=== PATIENT | male | born 2000 | race Caucasian/White ===

== ENCOUNTER 2021-02-08 22:15 | Emergency (ER) | payer MEDICAID, OTHER ==
[2021-02-08] MEDS ORDERED: Ticagrelor 90 MG Tab PO ONE (22:47)
--- NOTE | 2021-02-08 22:47 | EDM.PDOC ---
ED HPI GENERAL MEDICAL PROBLEM - General Chief Complaint: Respiratory Problem Stated Complaint: fever, chills, weak, aches, cough Time Seen by Provider: 02/08/21 22:45 Source of Information: Reports: Patient, Old Records ([facility] EMR. No paper hospital chart available.), Significant Other (Fianc) History Limitations: Reports: No Limitations - History of Present Illness INITIAL COMMENTS - FREE TEXT/NARRATIVE: Patient was brought to the emergency room via private automobile by his fiance for evaluation of multiple symptoms, including a 5-6-day history of generalized arthralgias, fevers, sore throat, pleurisy, nonproductive cough, intermittent nausea, and one episode of emesis prior to arrival with additional episode of emesis in the emergency room at time of his blood draw. He did have a lost of taste about 5 days ago, however this has since resolved. No known exposure to infection, including COVID-19, strep, influenza, etc. He did not receive an influenza or Covid immunization to this point. He complains of an 89/10 headache, 78/10 arthralgias, and 5/10 pleurisy and sore throat. No recent history of abdominal pain, heartburn, nausea, diarrhea, melena, gross hematochezia, or any food intolerance, including fatty foods, etc.. The patient also denies any recent wheezing, etc., although some nonspecific dyspnea with temperature of 103 degrees shortly prior to arrival. He denies any gross hematuria, colic, or other UTI symptoms. Onset: Gradual Onset Date: 02/03/21 Duration: Constant, Getting Worse Location: Reports: Head, Chest (Pleurisy), Generalized (Arthralgias). Denies: Face, Neck, Abdomen, Back, Pelvis, Radiates to Quality: Reports: Ache Severity: Moderate Improves with: Reports: None Worsens with: Reports: None Context: Reports: Other (As above). Denies: Sick Contact, Trauma Associated Symptoms: Reports: Chest Pain (Pleurisy), Cough, Fever/Chills, Headaches, Nausea/Vomiting, Shortness of Breath, Weakness (Mild generalized). Denies: Confusion, cough w sputum, Diaphoresis, Loss of Appetite, Malaise, Syncope Treatments WARD SECRETARY: Reports: Other (see below) (None) Generalized Pain Score (Numeric/FACES): 8 - Related Data Allergies Allergy/AdvReac Type Severity Reaction Status Date / Time Sulfa (Sulfonamide Allergy Anaphylactic Verified 02/08/21 22:16 Antibiotics) Shock Home Meds: Home Meds Escitalopram [Lexapro] 20 mg PO DAILY 02/08/21 [History] Magnesium Oxide 400 mg PO DAILY #30 tab 02/09/21 [Rx] Past Medical History HEENT History: Reports: Allergic Rhinitis, Hard of Hearing, Otitis Media, Sinusitis, Other (See Below). Denies: Cataract, Glaucoma, Impaired Vision, Macular Degeneration, Retinal Detachment Other HEENT History: Recurrent otitis medias as a child with mild right-sided hearing loss with moderate persistent left-sided hearing loss secondary to previous ear surgery as below. Cardiovascular History: Reports: Other (See Below). Denies: Afib, Aneurysm, Arrhythmia, Blood Clots/VTE/DVT, CAD, Heart Failure, Heart Murmur, High Cholesterol, Hypertension, MO, PVD, Syncope Other Cardiovascular History: The patient does not know his cholesterol status. Respiratory History: Reports: Asthma, Bronchitis, Recurrent, Intubation, Previous. Denies: Intubation, Difficult, PE, Pneumonia, Recurrent, Pneumothorax, Sleep Apnea, TB Gastrointestinal History: Reports: None. Denies: Bowel Obstruction, Celiac Disease, Cholelithiasis, Fatty Liver, Gastritis, GI Bleed, Hepatitis, Hiatal Hernia, Inflammatory Bowel Disease, Irritable Bowel Syndrome, Jaundice, Pancreatitis, PUD Genitourinary History: Denies: Acute Renal Failure, Chronic Renal Insuffiency, Renal Calculus, STD, Urinary Incontinence, UTI, Recurrent Musculoskeletal History: Reports: Back Pain, Chronic, Osteoarthritis. Denies: Arthritis, Gout, Neck Pain, Chronic, RA, SLE Neurological History: Reports: Concussion, Head Trauma, Neuropathy, Peripheral, Other (See Below). Denies: Cerebral Aneurysms, CVA, Headaches, Chronic, Migraines, MS, Parkinson's, Seizure, TIA, Vertigo Other Neuro History: Head concussions x2 during middle school. Psychiatric History: Reports: Anxiety, Depression, Psych Hospitalization(s), Suicide Attempt, Suicidal Ideation, Other (See Below). Denies: Abuse, Victim of, ADD, ADHD, Addiction, PTSD Other Psychiatric History: Recurrent suicidal ideation including suicidal attempt and inpatient care at age 11. Endocrine/Metabolic History: Reports: Obesity/BMI 30+. Denies: Diabetes, Type I, Diabetes, Type II, Diabetes Mellitus, Type 3c, Hypothyroidism, IDDM Hematologic History: Denies: Anemia, Blood Transfusion(s), Iron Deficiency Immunologic History: Reports: None. Denies: AIDS, HIV, SLE Oncologic (Cancer) History: Reports: None. Denies: Basal Cell Carcinoma, Hodgkin's Lymphoma, Leukemia, Lymphoma, Malignant Melanoma, Non-Hodgkin's Lymphoma, Prostate, Squamous Cell Carcinoma Dermatologic History: Reports: None. Denies: Eczema, Psoriasis - Infectious Disease History Infectious Disease History: Reports: None. Denies: Chicken Pox, Measles, Meningitis, Mononucleosis, MRSA, Mumps, Novel Coronavirus, Pertussis (Whooping Cough), Rheumatic Fever, Rubella, Scarlet Fever, TB, VRE - Past Surgical History Head Surgeries/Procedures: Reports: None HEENT Surgical History: Reports: Adenoidectomy, Myringotomy w Tube(s), Oral Surgery, Tonsillectomy, Other (See Below). Denies: Eye Surgery, Laser Surgery, LASIK, Naso-Sinus Surgery Other HEENT Surgeries/Procedures: Tonsillectomy and adenoidectomy as a child. Bilateral PE tubes at age 2. Left exploratory tympanotomy with otic bone shavings in 2017. Cardiovascular Surgical History: Reports: None. Denies: Varicose Respiratory Surgical History: Reports: None. Denies: Thoracentesis GI Surgical History: Reports: None. Denies: Appendectomy, Cholecystectomy, Colonoscopy, EGD, Hernia, Abdominal, Hernia, Inguinal, Hernia Repair/Other Male Surgical History: Reports: Circumcision, Other (See Below). Denies: Vasectomy Other Male Surgeries/Procedures: Circumcision as an infant. Endocrine Surgical History: Reports: None. Denies: Thyroid Biopsy Neurological Surgical History: Reports: None. Denies: C-Spine, Discectomy, Laminectomy, Lumbar Spine, Sacral Spine, Spinal Fusion, Thoracic Spine, Vertebroplasty Musculoskeletal Surgical History: Reports: None. Denies: Arthroscopic Procedure, Carpal Tunnel, Ganglion Cyst, Joint Replacement, ORIF, Shoulder Surgery Oncologic Surgical History: Reports: None Dermatological Surgical History: Reports: None Social & Family History - Tobacco Use Tobacco Use Status *Q: Former Tobacco User Tobacco Use Within Last Twelve Months: Cigarettes Years of Tobacco use: 3 Packs/Tins Daily: 0.2 Packs/Tins Daily Comment: Started smoking at age 17 with maximum use of 1 pack/day. No tobacco use since October 2020. Used Tobacco, but Quit: Yes Smoking Cessation Information Provided To Patient: No Second Hand Smoke Exposure: No Second Hand Smoke Education Provided: No - Caffeine Use Caffeine Use: Reports: Soda (35 sodas per week). Denies: Coffee, Energy Drinks, Tea - Alcohol Use Alcohol Use History: Yes Days Per Week of Alcohol Use: 1 Number of Drinks Per Day: 3 Number of Drinks Per Day Comment: Usually mixed drinks. No previous DWIs, problems with alcohol abuse, etc. Total Drinks Per Week: 3 Alcohol Use in Last Twelve Months: Yes - Recreational Drug Use Recreational Drug Use: Yes Drug Use in Last 12 Months: Yes Recreational Drug Type: Reports: Marijuana/Hashish (Since age 18 about every 2 weeks). Denies: Amphetamines (Speed), Cocaine, Heroin, Inhalants (Glues, Solvents, Aerosols), LSD (Acid), Methamphetamine, Morphine, Oxycodone - Living Situation & Occupation Living situation: Reports: with Significant Other (Fianc. No children) Occupation: Unemployed (Previously at [employer]) ED ROS GENERAL - Review of Systems Review Of Systems: Comprehensive ROS is negative, except as noted in HPI. ED EXAM, GENERAL - Physical Exam Exam: See Below Exam Limited By: No Limitations General Appearance: Alert, WD/WN, No Apparent Distress, Anxious (Mild) Eye Exam: Bilateral Eye: EOMI, Normal Inspection (No vertigo or nystagmus), PERRL Ears: Normal External Exam, Normal Canal, Normal TMs, Hearing Loss (Stable mild bilateral hearing loss, left greater than right, by history) Nose: Normal Mucosa, No Blood, Clear Rhinorrhea (Mild) Throat/Mouth: Normal Lips, Normal Teeth, Normal Gums, Normal Voice, No Airway Compromise. No: Normal Oropharynx (Trace erythema in the posterior pharynx), Dysphagia, Perioral Cyanosis Head: Atraumatic, Normocephalic. No: Facial Swelling, Facial Tenderness, Sinus Tenderness Neck: Normal Inspection, Supple, Non-Tender, Full Range of Motion. No: Lymphadenopathy (L), Lymphadenopathy (R), Thyromegaly Respiratory/Chest: No Respiratory Distress, Lungs Clear, Normal Breath Sounds, No Accessory Muscle Use, Chest Non-Tender. No: Pleural Rub (None none none), Retractions Cardiovascular: Normal Peripheral Pulses, No Edema, No Gallop, No JVD, No Murmur, No Rub, Tachycardia (Regular rhythm). No: Gallop/S3, Gallop/S4, Friction Rub Peripheral Pulses: 2+: Radial (L), Radial (R) GI/Abdominal: Normal Bowel Sounds, Soft, Non-Tender, No Organomegaly, No Distention, No Abnormal Bruit, No Mass, Other (Obese). No: Guarding (Male) Exam: Deferred Rectal (Males) Exam: Deferred Back Exam: Normal Inspection, Full Range of Motion. No: CVA Tenderness (L), CVA Tenderness (R), Muscle Spasm Extremities: Normal Inspection, Normal Range of Motion, Non-Tender, No Pedal Edema, Normal Capillary Refill. No: Kitty's Sign Neurological: Alert, Oriented, CN II-XII Intact, Normal Cognition, Normal Gait, No Motor/Sensory Deficits Psychiatric: Anxious (Mild), Depressed Mood (Mild) Skin Exam: Warm, Dry, Intact, Normal Color, No Rash, Tattoo(s) (Multiple). No: Diaphoretic, Wound/Incision Lymphatic: No Adenopathy Course - Vital Signs Last Recorded V/S: Last Vital Signs Temp 39.2 C H 02/08/21 23:50 Pulse 107 H 02/08/21 23:50 Resp 17 02/08/21 23:50 BP 131/59 L 02/08/21 23:50 Pulse Ox 99 02/08/21 23:50 Vital Signs - 24 hr 02/08/21 02/08/21 22:17 23:50 Temperature [ 39.4 C H 39.2 C H Oral] Pulse, 125 H 107 H Peripheral [ Pulse Oximetry] Respiratory 22 H 17 Rate Blood Pressure 126/65 131/59 L [Upper Arm] O2 Sat by Pulse 98 99 Oximetry - Orders/Labs/Meds Orders: Active Orders 24 hr Category Date Time Status Cardiac Monitoring [RC] . DIRECTED Care 02/08/21 22:47 Active Oxygen Therapy, ED [RC] PRN Care 02/08/21 22:47 Active Peripheral IV Care [RC] . DIRECTED Care 02/08/21 22:47 Active Pulse Oximetry [RC] CONTINUOUS Care 02/08/21 22:47 Active Up With Assistance [RC] PFP Care 02/08/21 22:47 Active Vital Signs [RC] PFP Care 02/08/21 22:47 Active Nothing per Oral Now Diet [DIET] Diet 02/08/21 Breakfast Active Abdomen 2V AP Flat Upright [CR] Routine Exams 02/08/21 22:52 Taken Chest 2V [CR] Stat Exams 02/08/21 22:47 Taken CORONAVIRUS COVID-19 NICHOLE [MOLEC] Stat Lab 02/08/21 23:20 Received CORONAVIRUS COVID-19 NICHOLE [MOLEC] Stat Lab 02/08/21 23:25 Received CULTURE BLOOD [BC] Stat Lab 02/08/21 23:10 Received CULTURE STREP A CONFIRMATION [RM] Stat Lab 02/08/21 23:20 Results CULTURE URINE [RM] Routine Lab 02/08/21 22:47 Ordered STREP SCRN A RAPID W CULT CONF [RM] Stat Lab 02/08/21 23:20 Results UA W/MICROSCOPIC [URIN] Stat Lab 02/08/21 22:48 Ordered Sodium Chloride 0.9% [Saline Flush] Med 02/08/21 22:47 Active 10 ml FLUSH ASDIRECTED PRN Blood Culture x2 Reflex Set [OM.PC] Urgent Oth 02/08/21 22:51 Ordered Isolation [COMM] Routine Oth 02/08/21 22:50 Active Obtain Past Medical Record [OM.PC] Urgent Oth 02/08/21 22:47 Active Peripheral IV Insertion Adult [OM.PC] Stat Oth 02/08/21 22:47 Ordered Resuscitation Status Stat Resus Stat 02/08/21 22:47 Ordered EKG 12 Lead [EK] Stat Ther 02/08/21 22:47 Stop Req Medication Orders Sodium Chloride (Sodium Chloride 0.9% 10 Ml Syringe) 10 ml FLUSH ASDIRECTED PRN PRN Reason: Keep Vein Open Last Admin: 02/09/21 00:32 Dose: 10 ml Documented by: Admin: 02/08/21 23:28 Dose: 10 ml Documented by: AIXA Labs: Laboratory Tests 02/08/21 02/08/21 02/08/21 Range/Units 23:10 23:10 23:10 WBC 11.0 H (4.0-10.2) K/uL RBC 5.65 H (4.33-5.41) M/uL Hgb 15.4 (13.1-16.8) g/dL Hct 44.9 (39.0-49.0) % MCV 79.5 L (84.0-98.0) fL MCH 27.3 L (28.2-33.3) pg MCHC 34.3 (31.7-36.0) g/dL RDW 13.5 (11.2-14.1) % Plt Count 216 (150-350) K/uL Neut % (Auto) 78.0 (45.0-80.0) % Lymph % (Auto) 12.8 (10.0-50.0) % Owsley % (Auto) 8.9 (2.0-14.0) % Eos % (Auto) 0.1 (0.0-5.0) % Baso % (Auto) 0.2 (0.0-2.0) % Neut # (Auto) 8.60 H (1.40-7.00) K/uL Lymph # (Auto) 1.41 (0.50-3.50) K/uL Owsley # (Auto) 0.98 (0.00-1.00) K/uL Eos # (Auto) 0.01 (0.00-0.50) K/uL Baso # (Auto) 0.02 (0.00-0.20) K/uL PT 10.3 (9.5-12.0) SEC INR 1.0 APTT 26.7 (24.5-32.8) SEC D-Dimer, Quantitative 310 (0-400) ng/mL Sodium (136-145) mmol/L Potassium (3.5-5.1) mmol/L Chloride (98-107) mmol/L Carbon Dioxide (21.0-32.0) mmol/L BUN (7-18) mg/dL Creatinine (0.51-1.17) mg/dL Est Cr Clr Drug Dosing mL/min Estimated GFR (MDRD) mL/min Glucose (70-99) mg/dL Lactic Acid (0.4-2.0) mmol/L Uric Acid (2.6-7.2) mg/dL Calcium (8.5-10.1) mg/dL Magnesium (1.8-2.4) mg/dL Total Bilirubin (0.2-1.0) mg/dL AST (15-37) U/L ALT (12-78) U/L Alkaline Phosphatase (46-116) IU/L Creatine Kinase (26-308) U/L Creatine Kinase Index (0.0-2.5) % CK-MB (CK-2) (0.00-3.60) ng/mL Troponin I (0.000-0.056) ng/mL NT-Pro-B Natriuret Pep (0-125) pg/mL Total Protein (6.4-8.2) g/dL Albumin (3.4-5.0) g/dL Amylase (25-115) U/L Lipase (73-393) U/L TSH, Ultra Sensitive (0.358-3.740) mIU/mL SARS-CoV-2 Ag (Rapid) (NEGATIVE) 02/08/21 02/08/21 02/08/21 Range/Units 23:10 23:10 23:25 WBC (4.0-10.2) K/uL RBC (4.33-5.41) M/uL Hgb (13.1-16.8) g/dL Hct (39.0-49.0) % MCV (84.0-98.0) fL MCH (28.2-33.3) pg MCHC (31.7-36.0) g/dL RDW (11.2-14.1) % Plt Count (150-350) K/uL Neut % (Auto) (45.0-80.0) % Lymph % (Auto) (10.0-50.0) % Owsley % (Auto) (2.0-14.0) % Eos % (Auto) (0.0-5.0) % Baso % (Auto) (0.0-2.0) % Neut # (Auto) (1.40-7.00) K/uL Lymph # (Auto) (0.50-3.50) K/uL Owsley # (Auto) (0.00-1.00) K/uL Eos # (Auto) (0.00-0.50) K/uL Baso # (Auto) (0.00-0.20) K/uL PT (9.5-12.0) SEC INR APTT (24.5-32.8) SEC D-Dimer, Quantitative (0-400) ng/mL Sodium 136 (136-145) mmol/L Potassium 3.6 (3.5-5.1) mmol/L Chloride 99 (98-107) mmol/L Carbon Dioxide 25.6 (21.0-32.0) mmol/L BUN 15 (7-18) mg/dL Creatinine 0.90 (0.51-1.17) mg/dL Est Cr Clr Drug Dosing 160.74 mL/min Estimated GFR (MDRD) > 60 mL/min Glucose 105 H (70-99) mg/dL Lactic Acid 0.8 (0.4-2.0) mmol/L Uric Acid 4.7 (2.6-7.2) mg/dL Calcium 8.8 (8.5-10.1) mg/dL Magnesium 1.6 L (1.8-2.4) mg/dL Total Bilirubin 0.9 (0.2-1.0) mg/dL AST 12 L (15-37) U/L ALT 25 (12-78) U/L Alkaline Phosphatase 118 H (46-116) IU/L Creatine Kinase 51 (26-308) U/L Creatine Kinase Index 1.0 (0.0-2.5) % CK-MB (CK-2) 0.50 (0.00-3.60) ng/mL Troponin I 0.000 (0.000-0.056) ng/mL NT-Pro-B Natriuret Pep 72 (0-125) pg/mL Total Protein 7.9 (6.4-8.2) g/dL Albumin 3.7 (3.4-5.0) g/dL Amylase 26 (25-115) U/L Lipase 30 L (73-393) U/L TSH, Ultra Sensitive 0.355 L (0.358-3.740) mIU/mL SARS-CoV-2 Ag (Rapid) Negative (NEGATIVE) Blood cultures x2 were collected. Urine specimen could not be obtained Microbiology 02/08/21 23:20 Influenza Type A Antigen Screen - Final Nasal, Unspecified NEGATIVE INFLUENZA A VIRUS AG REFERENCE RANGE: NEGATIVE Influenza Type B Antigen Screen - Final NEGATIVE INFLUENZA B VIRUS AG REFERENCE RANGE: NEGATIVE 02/08/21 23:20 Group A Streptococcus Rapid Screen - Final Throat NEGATIVE STREP A SCREEN REFERENCE RANGE: NEGATIVE Meds: Medications Generic Name Dose Route Start Last Admin Trade Name Darius PRN Reason Stop Dose Admin Sodium Chloride 10 ml 02/08/21 22:47 02/09/21 00:32 Sodium Chloride 0.9% 10 Ml Syringe FLUSH 10 ml ASDIRECTED PRN Administration Keep Vein Open Discontinued Medications Generic Name Dose Route Start Last Admin Trade Name Draius PRN Reason Stop Dose Admin Acetaminophen 650 mg 02/08/21 23:37 02/08/21 23:50 Acetaminophen 325 Mg Tab PO 02/08/21 23:38 650 mg NOW ONE Administration Lactated Ringer's 1,000 mls @ 999 mls/hr 02/08/21 22:51 02/08/21 23:28 Ringers, Lactated IV 02/08/21 23:51 999 mls/hr .BOLUS ONE Administration Ketorolac Tromethamine 30 mg 02/09/21 00:06 02/09/21 00:32 Ketorolac 30 Mg/Ml Sdv IVPUSH 02/09/21 00:07 30 mg ONETIME ONE Administration Magnesium Oxide 800 mg 02/09/21 00:12 02/09/21 00:32 Magnesium Oxide 400 Mg Tab PO 02/09/21 00:13 800 mg ONETIME ONE Administration Ondansetron HCl 4 mg 02/08/21 22:51 02/08/21 23:13 Ondansetron 4 Mg/2 Ml Sdv IVPUSH 02/08/21 22:52 4 mg ONETIME ONE Administration Ticagrelor 180 mg 02/08/21 22:47 02/08/21 23:15 Ticagrelor 90 Mg Tab PO 02/08/21 22:48 180 mg ONETIME ONE Administration - Radiology Interpretation Free Text/Narrative:: monitor worker showed mild sinus tachycardia with heart rates in the 100s to 120s with no ectopy or arrhythmia with heart rate averaging in the 100s prior to discharge. Chest x-ray, PA and lateral, shows evidence of mild pulmonary obstructive disease with no pulmonary infiltrates, pneumothorax, cardiomegaly, CHF, etc. Abdominal x-rays, flat and upright, shows evidence of moderate nonspecific increased bowel gaseous pattern with no free air, fluid levels, ileus, or obstruction. Moderate diffuse stool noted. Departure - Departure Time of Disposition: 00:50 Disposition: Home, Self-Care 01 Condition: Good Clinical Impression: Hyperthyroidism, Hypomagnesemia, Microcytosis, Mixed anxiety depressive disorder, Illicit drug use, continuous URI (upper respiratory infection) Qualifiers: URI type: unspecified URI Qualified Code(s): J06.9 - Acute upper respiratory infection, unspecified Nausea and vomiting Qualifiers: Vomiting type: unspecified Vomiting Intractability: non-intractable Qualified Code(s): R11.2 - Nausea with vomiting, unspecified Asthma Qualifiers: Asthma severity: mild Asthma persistence: intermittent Asthma complication type: uncomplicated Qualified Code(s): J45.20 - Mild intermittent asthma, uncomplicated - Discharge Information *PRESCRIPTION DRUG MONITORING PROGRAM REVIEWED*: Not Applicable *COPY OF PRESCRIPTION DRUG MONITORING REPORT IN PATIENT DWIGHT: Not Applicable Prescriptions: Magnesium Oxide 400 mg PO DAILY #30 tab Instructions: Heart-Healthy Eating Plan, [id number], COVID-19: How to Protect Yourself and Others - [facility] Referrals: Kavon Goodman PA [Primary Care Provider] - Forms: ED Department Discharge Additional Instructions: 1. Followup with your regular provider in 5-7 days as directed for reevaluation and recommended CBC, comprehensive metabolic panel, and magnesium level. Bring these discharge instructions with you to that visit. 2. Tylenol 650 mg by mouth every 4 hours and/or OTC ibuprofen 2-3 tabs by mouth every 6 hours with food as directed./needed. You may stagger these medications for 48-72 hours only, which essentially means that you are receiving a pain medication about every 2 hours. Next dose of ibuprofen as needed in 6 hours secondary to medications given in the emergency room 3. [place] diet including encouragement of oral fluids such as sports drinks, etc. for 24-48 hours as directed. Advance to heart healthy diet as tolerated thereafter. 4. Maintain recommended quarantine until you have been notified of today's COVID-19 test results as discussed with return to previous social distancing, use of masks, etc., thereafter as per current recommended CDC guidelines 5. Hygiene precautions as discussed 6. Immediately after this visit verify that your cellular telephone's voicemail has been activated and is empty. Also verify that your home telephone's answering machine is operating properly and has space to receive messages. Note that it is sometimes necessary for us to be able to contact you at a later date to discuss your medical care. 7. Please remember that we are ALWAYS here for you and want to answer any ques tions you may have. Feel free to call the hospital any time and we call you back SAM. 8. TSH, free T3, and free T4 should be conducted in about 1 month with further thyroid studies depending on these test results, clinical course, etc. Sepsis Event Note (ED) - Evaluation Sepsis Screening Result: Possible Sepsis Risk - Focused Exam Vital Signs: Vital Signs Temp Pulse Resp BP Pulse Ox 02/08/21 23:50 39.2 C H 107 H 17 131/59 L 99 02/08/21 22:17 39.4 C H 125 H 22 H 126/65 98 - Problem List & Annotations (1) URI (upper respiratory infection) SNOMED Code(s): 03472893 Code(s): J06.9 - ACUTE UPPER RESPIRATORY INFECTION, UNSPECIFIED Status: Acute Priority: High Onset Date: ~02/03/21 Annotation/Comment:: Symptoms suspicious of possible COVID-19 with rapid test results pending and to be called to the patient tomorrow. Isolation, hygiene, etc. precautions were given. His fiance was also given a [place] work excuse. Patient was counseled on the possibility of false negative evaluation with possible repeat evaluation at follow-up with his regular provider. Tylenol and high-dose IV Toradol were given in the emergency room with improved fevers prior to discharge. 1 L IV bolus of lactated Ringer's was also given., In addition, note some pleurisy, although no true chest pain or anginal type symptoms. D-dimer and cardiac enzymes were normal with Brilinta given as prophylaxis secondary to possibility of Covid, although this will not be continued at this time. Qualifiers: URI type: unspecified URI Qualified Code(s): J06.9 - Acute upper respiratory infection, unspecified (2) Nausea and vomiting SNOMED Code(s): 03522225 Code(s): R11.2 - NAUSEA WITH VOMITING, UNSPECIFIED Status: Acute Priority: High Onset Date: ~02/08/21 Annotation/Comment:: Improved prior to discharge. IV Zofran given in the emergency room. [place] diet at discharge with patient given a heart healthy diet secondary to his current obesity. Qualifiers: Vomiting type: unspecified Vomiting Intractability: non-intractable Qualified Code(s): R11.2 - Nausea with vomiting, unspecified (3) Asthma SNOMED Code(s): 999913301 Code(s): J45.909 - UNSPECIFIED ASTHMA, UNCOMPLICATED Status: Chronic Priority: Medium Annotation/Comment:: Patient has not had any problems for at least 2 years with no current medical therapy. Observe for now. Qualifiers: Asthma severity: mild Asthma persistence: intermittent Asthma complication type: uncomplicated Qualified Code(s): J45.20 - Mild intermittent asthma, uncomplicated (4) Hyperthyroidism SNOMED Code(s): 34558766 Code(s): E05.90 - THYROTOXICOSIS, UNSP WITHOUT THYROTOXIC CRISIS OR STORM Status: Acute Priority: Medium Onset Date: 02/09/21 Annotation/Comment:: Mild TSH depression currently nonsymptomatic. Close follow-up by regular provider, including recommended TSH, free T3, and free T4 in about 1 month. (5) Hypomagnesemia SNOMED Code(s): 531697968 Code(s): E83.42 - HYPOMAGNESEMIA Status: Acute Priority: Medium Onset Date: 02/09/21 Annotation/Comment:: High-dose magnesium oxide given in the emergency room. Note evidence of some constipation by today's x-ray. Continue magnesium oxide on an outpatient basis with close follow-up by renal provider as per discharge instructions. (6) Illicit drug use, continuous SNOMED Code(s): 219454055 Code(s): F19.90 - OTHER PSYCHOACTIVE SUBSTANCE USE, UNSPECIFIED, UNCOMPLICATED Status: Chronic Priority: Medium Annotation/Comment:: Discontinuation of marijuana use advisable especially in light of his anxiety depression disorder. He was congratulated about discontinuing smoking, however. (7) Microcytosis Status: Acute Priority: Medium Onset Date: 02/09/21 Annotation/Comment:: Close follow-up by regular provider with further work-up depending on his clinical course. (8) Mixed anxiety depressive disorder SNOMED Code(s): 882249869 Code(s): F41.8 - OTHER SPECIFIED ANXIETY DISORDERS Status: Chronic Priority: Medium Annotation/Comment:: Stable by patient history - Problem List Review Problem List Initiated/Reviewed/Updated: Yes - My Orders Last 24 Hours: My Active Orders 02/08/21 Breakfast Nothing per Oral Now Diet [DIET] 02/08/21 22:47 Cardiac Monitoring [RC] . DIRECTED Oxygen Therapy, ED [RC] PRN Peripheral IV Care [RC] . DIRECTED Pulse Oximetry [RC] CONTINUOUS Up With Assistance [RC] PFP Vital Signs [RC] PFP Chest 2V [CR] Stat CULTURE URINE [RM] Routine Sodium Chloride 0.9% [Saline Flush] 10 ml FLUSH ASDIRECTED PRN Obtain Past Medical Record [OM.PC] Urgent Peripheral IV Insertion Adult [OM.PC] Stat Resuscitation Status Stat EKG 12 Lead [EK] Stat 02/08/21 22:48 UA W/MICROSCOPIC [URIN] Stat 02/08/21 22:50 Isolation [COMM] Routine 02/08/21 22:51 Blood Culture x2 Reflex Set [OM.PC] Urgent 02/08/21 22:52 Abdomen 2V AP Flat Upright [CR] Routine 02/08/21 23:10 CULTURE BLOOD [BC] Stat 02/08/21 23:20 CORONAVIRUS COVID-19 NICHOLE [MOLEC] Stat CULTURE STREP A CONFIRMATION [RM] Stat STREP SCRN A RAPID W CULT CONF [RM] Stat 02/08/21 23:25 CORONAVIRUS COVID-19 NICHOLE [MOLEC] Stat - Assessment/Plan Last 24 Hours: My Active Orders 02/08/21 Breakfast Nothing per Oral Now Diet [DIET] 02/08/21 22:47 Cardiac Monitoring [RC] . DIRECTED Oxygen Therapy, ED [RC] PRN Peripheral IV Care [RC] . DIRECTED Pulse Oximetry [RC] CONTINUOUS Up With Assistance [RC] PFP Vital Signs [RC] PFP Chest 2V [CR] Stat CULTURE URINE [RM] Routine Sodium Chloride 0.9% [Saline Flush] 10 ml FLUSH ASDIRECTED PRN Obtain Past Medical Record [OM.PC] Urgent Peripheral IV Insertion Adult [OM.PC] Stat Resuscitation Status Stat EKG 12 Lead [EK] Stat 02/08/21 22:48 UA W/MICROSCOPIC [URIN] Stat 02/08/21 22:50 Isolation [COMM] Routine 02/08/21 22:51 Blood Culture x2 Reflex Set [OM.PC] Urgent 02/08/21 22:52 Abdomen 2V AP Flat Upright [CR] Routine 02/08/21 23:10 CULTURE BLOOD [BC] Stat 02/08/21 23:20 CORONAVIRUS COVID-19 NICHOLE [MOLEC] Stat CULTURE STREP A CONFIRMATION [RM] Stat STREP SCRN A RAPID W CULT CONF [RM] Stat 02/08/21 23:25 CORONAVIRUS COVID-19 NICHOLE [MOLEC] Stat Assessment:: As above Plan: As above. Extensive precautions were given to the patient and his fiance, who are in agreement with the treatment plan. See Patient Instructions for further treatment and plan.
[2021-02-08] MEDS ORDERED: Ondansetron 4 MG/2 ML SDV IVPUSH ONE (22:51)
[2021-02-08] MEDS ORDERED: Lactated Ringers 1,000 ML IV ONE (22:51)
[2021-02-08] MEDS: Sodium Chloride 0.9% 10 ML Syringe FLUSH PRN (23:28)
[2021-02-08] MEDS ORDERED: Acetaminophen 325 MG Tab PO ONE (23:37)
[2021-02-08 23:56] LABS: CHLORIDE,CL 99 mmol/L (98-107); SODIUM,NA 136 mmol/L (136-145)
[2021-02-09 00:03] LABS: PTT,PARTIAL THROMBOPLSTIN TIME 26.7 SEC (24.5-32.8)
[2021-02-09] MEDS ORDERED: Ketorolac 30 MG/ML SDV IVPUSH ONE (00:06)
[2021-02-09] MEDS ORDERED: Magnesium Oxide 400 MG Tab PO ONE (00:12)
[2021-02-09] MEDS: Sodium Chloride 0.9% 10 ML Syringe FLUSH PRN (00:32)
== END 2021-02-09 00:50 | disposition home or self-care (01) ==
LOC: LL.ED 22:15
DX: J45.20 Mild intermittent asthma, uncomplicated (principal); J06.9 Acute upper respiratory infection, unspecified; E03.9 Hypothyroidism, unspecified; F19.10 Other psychoactive substance abuse, uncomplicated; F41.8 Other specified anxiety disorders; E83.42 Hypomagnesemia; R11.2 Nausea with vomiting, unspecified; Z88.2 Allergy status to sulfonamides; Z87.891 Personal history of nicotine dependence
CPT/HCPCS: 36415; 71046; 74019; 80053; 82150; 82550; 82553; 83605; 83690; 83735; 83880; 84443; 84484; 84550; 85025; 85379; 85610; 85730; 87040; 87081; 87426; 87430; 87804; 96374; 96375; 99284; 99284-25; A9270-GY; J1885; J2405; J7120; U0002